=== PATIENT | female | born 1980 | race Two or more races ===

== ENCOUNTER 2025-07-14 02:39 | Emergency (ER) | payer MEDICAID, SELFPAY ==
[2025-07-14 02:44] VITALS: BP 135/71; PULSE 75; RESP 19; TEMP 36.9; O2SAT 98
--- NOTE | 2025-07-14 02:50 | XR_ITS ---
Examination: OB Transvaginal ultrasound of the pelvis, complete Technique: Transvaginal sonographic images pelvis performed using waters scale imaging Exam date and time: July 14, 2025, 0349 hrs. Indications: Positive test with onset vaginal bleeding today Findings: Uterus 9.5 cm no uterine mass or intrauterine gestation Endometrial stripe 0.75 cm Right ovary 3.6 cm arterial flow 10 mm follicular cyst Left ovary 2.5 cm arterial flow Impression: Negative study.
--- NOTE | 2025-07-14 02:51 | EDNOTE_ITS ---
ED OB Contraction Preg RMI/HPI General Chief complaint: Vaginal Bleeding Stated complaint: VAGINAL BLEEDING,ABD PAIN Time Seen by Provider: 07/14/25 02:49 Arrival date/time: 07/14/25 02:39 45F at approximately 4-5 weeks and with history of unspecified anemia presents to ED with several days of pelvic pain/cramping and vaginal spotting. Patient had a positive at home test. Limitations: no limitations Related Data Previous Rx's ?Medication ?Instructions ?Recorded ibuprofen 600 mg tablet 600 mg PO Q6HR #30 tabs 12/05 Allergies Allergy/AdvReac Type Severity Reaction Status Date / Time No Known Allergies Allergy Verified 07/14/25 02:40 Review of Systems Review of Systems Systems Reviewed: All systems reviewed, normal except as documented Genitourinary Genitourinary: Reports as per HPI, Reports abnormal vaginal bleeding and Reports pelvic pain Past Medical History Past Medical History CARDIAC: Negative Cardiac Disorders or Congestive Heart Failure RESPIRATORY: Negative Chronic Obstructive Pulmonary Disease (COPD) GASTROINTESTINAL: Negative Gastrointestinal Disorders GENITOURINARY: Negative Genitourinary Disorders or Renal Disease ENDOCRINE: Negative Endocrine Disorders, Diabetes Mellitus Type 1 or Diabetes Mellitus Type 2 HEMATOLOGIC: Positive Anemia; Negative Blood Disorders Family History FAMILY HISTORY: Negative Family Cardiac Disorders Surgical History SURGICAL: Positive Section Social History SMOKING STATUS: Never smoker SUBSTANCE USE: does not use ED Exam General Limitations: Present no limitations General appearance: Present alert and in no apparent distress Head Head exam: Present atraumatic Neck Neck exam: Present normal inspection, full ROM and trachea midline Chest Chest inspection: Present normal inspection and symmetric chest wall rise Neurological Exam Neurological exam: Present alert and oriented X3 Psychiatric Psychiatric exam: Present normal affect and normal mood Skin Skin exam: Present warm, dry, intact and normal color Course Quality Measures none Orders Category Date Time Status US OB transvaginal Stat Exams 07/14/25 02:50 Taken ABO/RH Type Stat Lab 07/14/25 03:05 Completed Beta HCG,Quantitative Stat Lab 07/14/25 03:05 Completed CBC Stat Lab 07/14/25 03:05 Completed CMP [Comprehensive Metabolic Panel] Stat Lab 07/14/25 03:05 Completed Path Review Blood Smear Stat Lab 07/14/25 03:05 Completed Urinalysis, C/S if Indicated Stat Lab 07/14/25 03:15 Completed Vital Signs Vital signs: Vital Signs Temperature 98.4 F 07/14/25 02:44 Pulse Rate 75 07/14/25 02:44 Respiratory Rate 19 07/14/25 02:44 Blood Pressure 135/71 H 07/14/25 02:44 Pulse Oximetry (%) 98 07/14/25 02:44 Oxygen Delivery Method Room Air 07/14/25 02:44 O2 at 98% on RA and WNLs Vaginal Bleeding MDM Narrative MDM Narrative: 45F at approximately 4-5 weeks and with history of unspecified anemia presents to ED with several days of pelvic pain/cramping and vaginal spotting. Patient had a positive at home test. Physical exam reveals well-appearing female. Patient is afebrile, calm, and alert. US Telerad reveals no IUP, which makes sense given gestational age. No leukocytosis. Beta HCG 36, which likely represents very early vs miscarriage vs occult ectopic. Minimal anemia with hgb 9.9. UA mostly blood. CMP unremarkable. Blood type B+. Conservation Specialist given. Patient data External records reviewed:: [facility] previous records Clinical information provided by:: patient Social determinants that could affect healthcare access:: none Patient has the following chronic illnesses:: anemia How is presenting disease/condition affected by chronic disease/condition?: exacerbated by Evaluation data The following diagnostics were reviewed and interpreted by me:: lab results and radiology exam(s) Lab and/or radiology exams considered but not ordered:: ordered Interpretation Summary: above Medications / Prescriptions Medications or Prescriptions considered but not ordered:: not ordered Medication administrations:: n/a Consultations Consultation(s) initiated? (list below): No Diagnosis Vaginal Bleeding Differential Diagnosis: missed , threatened , dysfunctional uterine bleeding, menometrorrhagia, incomplete , ectopic without intrauterine and vaginal bleeding Most likely diagnosis given after review of the tests above:: vaginal bleeding Admission Indicated Admission indicated?: not indicated Admission Request Was there a request for admission?: No Disposition Plan Disposition Plan: Discharge Discharge Attestation Discharge Attestation: The patient and all family members were given an opportunity to ask questions and understood the discharge instructions. Discharge instructions specifically effects, indications for sooner follow up or return to the emergency department, and the expected course of current diagnosis. Patient condition: Stable Discharge Plan Plan Patient Disposition: HOME (Self Care) Discharge Disposition comment: Stable Prescriptions/Referrals Prescriptions/Med Rec: No Action ibuprofen 600 MG tablet 600 mg PO Q6HR Qty: 30 0RF Referrals: Emi Rey PA-C [Primary Care Provider] - In 1 week Problem List Clinical Impression: Vaginal bleeding Patient/Caregiver Discharge Instructions Education Materials: Bleeding During Early Additional Instructions: Please follow-up with PCP within 24-48 hours and return immediately if symptoms worsen. Beta hCG 36 here. Print Language: Vietnamese Stand Alone Forms: Patient Portal Info Letter JESS/CHRISTEN Supervising Physician JESS/CHRISTEN Supervising Physician: Dr. Easton
[2025-07-14 03:22] LABS: Collection Type, Urine Clean Catch
[2025-07-14 03:24] LABS: Basophils # (Auto) 0.1 Thou/mm3 (0.0-0.2); Basophils % (Auto) 1 % (0-2.5); Eosinophils # (Auto) 0.3 Thou/mm3 (0.0-0.5); Eosinophils % (Auto) 3 % (0-10); Hematocrit 32.5 % (36.0-46.0); Hemoglobin 9.9 g/dL (12.0-16.0); Immature Granulocytes Auto 0.03 Thou/mm3 (0.00-0.00); Lymphocytes # (Auto) 2.4 Thou/mm3 (1.0-4.8); Lymphocytes % (Auto) 24 % (10-50); Mean Corpuscular HGB Conc 30.5 g/dl (31.0-37.0); Mean Corpuscular Hemoglobin 20.8 pg (25.0-35.0); Mean Corpuscular Volume 68 fL (80-100); Monocytes # (Auto) 0.6 Thou/mm3 (0.0-0.8); Monocytes % (Auto) 6 % (0-12); Neutrophils # (Auto) 6.5 Thou/mm3 (1.8-7.7); Neutrophils % (Auto) 66 % (37-80); Nucleated Red Blood Cell # 0.00 Thou/mm3 (0.00-0.00); Nucleated Red Blood Cell % 0 /100 WBC (0); Platelet Count 345 Thou/mm3 (140-440); RDW Standard Deviation 43.8 fL (36.4-46.3); Red Blood Count 4.75 Miln/mm3 (4.00-5.20); White Blood Count 9.9 Thou/mm3 (3.6-11.0)
[2025-07-14 03:42] LABS: Bilirubin,Urine Negative (Negative); Blood,Urine 3+ (Negative); Clarity,Urine Turbid (Clear/Hazy); Color,Urine Brown (Lt Yel-Yel); Culture Indicated,Urine Contaminated; Glucose, Urine Negative (Negative); Ketones,Urine Negative (Negative); Leukocyte Esterase,Urine Positive (Negative); Nitrite,Urine Negative (Negative); PH,Urine 5.5 (5.0-7.0); Protein,Urine Trace (Neg - Trace); RBC,Urine 40378 /hpf (0-3); Specific Gravity,Urine 1.007 (1.001-1.035); Squamous Epithelial Cell,Urine 30 /hpf (0-5); Urobilinogen,Urine Negative mg/dL (0.0-1.0); WBC,Urine 47 /hpf (0-5)
[2025-07-14 03:48] LABS: Alanine Aminotransferase 20 U/L (10-49); Albumin, Serum 4.1 gm/dL (3.5-5.0); Albumin/Globulin Ratio 2.0 (1.2-2.2); Alkaline Phosphatase 116 U/L (46-116); Anion Gap 8 (7-16); Aspartate Amino Transferase 20 U/L (0-34); BUN/Creatinine Ratio 12 Ratio (12-20); Beta HCG,Quantitative 36 mIU/mL (<5.0); Bilirubin,Total 0.7 mg/dL (0.3-1.2); Blood Urea Nitrogen 7 mg/dL (9-23); Calcium 9.3 mg/dL (8.3-10.6); Calcium (Corrected) 9.3 mg/dL (8.5-10.1); Carbon Dioxide 23.8 mMol/L (20.0-31.0); Chloride 108 mMol/L (98-107); Creatinine (Component) 0.6 mg/dL (0.6-1.3); Globulin 2.1 gm/dL (2.3-3.5); Glucose 107 mg/dL (74-106); Osmolality,Calculated 277 (275-295); Potassium 4.0 mMol/L (3.4-5.1); Sodium 140 mMol/L (136-145); Total Protein 6.2 gm/dL (5.7-8.2); eGFR > 60 See Note
[2025-07-14 04:17] LABS: Path Review Blood Smear Sent to Pathologist
[2025-07-14 05:42] VITALS: BP 132/85; PULSE 74; RESP 19; TEMP 36.8; O2SAT 96
== END 2025-07-14 05:54 | disposition home or self-care (01) ==
PROVIDERS: Physician Assistant; Emergency Provider Emergency Medicine; PCP Physician Assistant Medical
DX: O20.9 Hemorrhage in early pregnancy, unspecified (principal); Z3A.01 Less than 8 weeks gestation of pregnancy
CPT/HCPCS: 36415; 76817; 80053; 81001; 84702; 85025; 86900; 86901; 99284